=== PATIENT | male | born 1950 | race Caucasian/White ===

== ENCOUNTER 2016-11-28 20:16 | Emergency (ER) | payer MEDICARE ==
--- NOTE | 2016-11-28 23:52 | Emergency Department Report ---
HPI - General Chief Complaint: Back Pain/Injury Time Seen by Provider: 11/28/16 23:45 - HPI HPI: Patient is a 66-year-old male presents to ED complaining of left lower back pain radiating down his leg. Patient states that this pain experiencing began 5 days ago and has gotten progressively worse. Patient states he stridor Lidoderm patches with no relief. Patient states pain is localized is right lower left buttock region and travels down anteriorly this leg. Calf pain bilaterally. Patient denies any injury or fall. Patient denies fever/chills/nausea/vomiting/abdominal pain/chest pain/headache specialist of breath or any other problems. ED Past Medical Hx - Past Medical History Previous Medical History?: Yes Hx Heart Attack/AMI: Yes Hx Diabetes: Yes Additional medical history: htn, diabetic, stent placement - Surgical History Past Surgical History?: Yes Additional Surgical History: stent placement - Social History Smoking Status: Never Smoker Substance Use Type: None - Medications Home Medications: Home Medications Medication Instructions Recorded Confirmed Last Taken Type AtorvaSTATin [Lipitor] 10 mg PO QDAY 10/19/16 10/19/16 Unknown History Ferrous Sulfate [Feosol 325 MG tab] 325 mg PO QDAY 10/19/16 10/19/16 Unknown History Insulin NPH/Regular [NovoLIN 70/30] 20 unit SQ QAM 10/19/16 10/19/16 Unknown History Insulin NPH/Regular [NovoLIN 70/30] 26 unit SQ QHS 10/19/16 10/19/16 Unknown History Lisinopril [Zestril TAB] 5 mg PO QDAY #30 tablet 10/20/16 Unknown Rx Lisinopril [Zestril TAB] 10 mg PO ONCE tablet 10/20/16 Unknown Rx Metoprolol Tartrate [Lopressor] 25 mg PO BID #60 tablet 10/20/16 Unknown Rx Metoprolol Xl [Metoprolol 25 mg PO ONCE tablet 10/20/16 Unknown Rx SUCCINATE ER TAB] Pantoprazole [Protonix TAB] 40 mg PO QDAY tablet 10/20/16 Unknown Rx Prasugrel [Effient] 10 mg PO QDAY tablet 10/20/16 Unknown Rx Prasugrel [Effient] 10 mg PO QDAY #30 tablet 10/20/16 Unknown Rx Protonix TAB 40 mg PO QDAY #30 10/20/16 Unknown Rx metFORMIN [Glucophage] 1,000 mg PO BID #60 tablet 10/20/16 Unknown Rx Acetaminophen/Codeine [Tylenol #3] 1 tab PO Q6H PRN #10 tab 11/29/16 Unknown Rx Cyclobenzaprine [Flexeril 10 MG 10 mg PO QHS #20 tablet 11/29/16 Unknown Rx TAB] Ibuprofen [Motrin] 800 mg PO Q8HR PRN #24 tablet 11/29/16 Unknown Rx ED Review of Systems ROS: Stated complaint: PAIN LF LEG Other details as noted in HPI Constitutional: denies: chills, fever Eyes: denies: eye pain, eye discharge, vision change ENT: denies: ear pain, throat pain Respiratory: denies: cough, shortness of breath, wheezing Cardiovascular: denies: chest pain, palpitations Endocrine: no symptoms reported Gastrointestinal: denies: abdominal pain, nausea, diarrhea Genitourinary: denies: urgency, dysuria Musculoskeletal: myalgia. denies: back pain, joint swelling, arthralgia Skin: denies: rash, lesions Neurological: denies: headache, weakness, paresthesias Psychiatric: denies: anxiety, depression Hematological/Lymphatic: denies: easy bleeding, easy bruising Physical Exam - Physical Exam Vital Signs: Vital Signs 11/28/16 20:24 Temperature 98.6 F Pulse Rate 97 H Respiratory 16 Rate Blood Pressure 113/72 O2 Sat by Pulse 98 Oximetry Physical Exam: GENERAL: Alert and oriented x3, no apparent distress, Normal Gait, atraumatic. HEAD: Head is normocephalic and a-traumatic. EYES: Extra ocular muscles are intact. Pupils are equal, round, and reactive to light and accommodation. LUNGS: Symetrical with respiration, No wheezing, no rales or crackles, CTAB. HEART: S1, S2 present, regular rate and rhythm without murmur, no rubs, no gallops. ABDOMEN: No organomegaly was noted,Positive bowel sounds, soft, and non- distended. . Nontender to palpation on all Quadrants, NO CVA tenderness. EXTREMITIES/MUSCULOSKELETAL: No cyanosis, clubbing, rash, lesions or edema. Full ROM bilaterally. UE/LE Pulses 2+ bilaterally. LE and UE 5+ strength bilaterally. SLR negative bilaterally. Half nontender bilaterally. Sylvia sign negative left leg. Tenderness to palpation of the quad muscles NEUROLOGIC: No focal Deficit, Cranial nerves II through XII are grossly intact. No loss of sensation, PSYCHIATRIC: Mood is congruent with affect, denies suicidal or homicidal ideations. SKIN: Warm and dry, No lesions, No ulceration or induration present. ED Course Vital Signs 11/28/16 20:24 Temperature 98.6 F Pulse Rate 97 H Respiratory 16 Rate Blood Pressure 113/72 O2 Sat by Pulse 98 Oximetry ED Medical Decision Making - Medical Decision Making 60-year-old male presents with cervical radiculopathy ED course: Patient received Toradol IM and Flexeril. Discussed patient oriented to follow up with primary care physician for complete management. Discussed taking medication as described. Discussed no strenuous activity for the next couple of days. Discussed with worsening symptoms or new symptoms arise to return to ED. Vital signs are stable patient is in no acute respiratory distress. Patient was resting asleep when I walked into the room. Patient is not seen in acute pain at the moment. Critical care attestation.: If time is entered above; I have spent that time in minutes in the direct care of this critically ill patient, excluding procedure time. ED Disposition Clinical Impression: Cervical radiculopathy Disposition: DISCHARGED TO HOME OR SELFCARE Is pt being admited?: No Does the pt Need Aspirin: No Condition: Stable Instructions: Cervical Radiculopathy (ED) Prescriptions: Cyclobenzaprine [Flexeril 10 MG TAB] 10 mg PO QHS #20 tablet Acetaminophen/Codeine [Tylenol #3] 1 tab PO Q6H PRN #10 tab PRN Reason: Pain Ibuprofen [Motrin] 800 mg PO Q8HR PRN #24 tablet PRN Reason: Pain Referrals: PRIMARY CARE, [Primary Care Provider] - 3-5 Days JEWELL QUEEN MD [Staff Physician] - 3-5 Days RAIMUNDO FERREIRA MD [Referring] - 3-5 Days WILLIAM PERAZA MD [Referring] - 3-5 Days TORIE FERRO MD [Referring] - 3-5 Days Forms: Work/School Release Form, Accompanied Note Time of Disposition: 00:19
[2016-11-29] MEDS ORDERED: FLEXERIL PO ONE (00:05)
[2016-11-29] MEDS ORDERED: TORADOL IM ONE (00:05)
[2016-11-29 00:52] VITALS: BP 119/80
== END 2016-11-29 00:48 | disposition home or self-care (01) ==
LOC: ED 20:16
DX: M54.12 Radiculopathy, cervical region (principal); I25.2 Old myocardial infarction; E11.9 Type 2 diabetes mellitus without complications; I10 Essential (primary) hypertension; Z79.4 Long term (current) use of insulin
CPT/HCPCS: 96372; 99282; J1885